=== PATIENT | female | born 1960 | race American Indian/Alaskan Native ===

== ENCOUNTER 2018-02-23 08:16 | Outpatient (CLI) | payer OTHER ==
--- NOTE | 2018-03-04 08:33 | Ultrasound Report ---
BILATERAL DIGITAL DIAGNOSTIC MAMMOGRAM and RIGHT BREAST ULTRASOUND: 02/23/18 08:16:00 CLINICAL: Recalled for bilateral asymmetries. COMPARISON:02/05/18 mammogram FINDINGS: Lateralmedial and spot compression CC views of the left breast were performed and are negative. No persistent asymmetry. An inferior right lower outer circumscribed focal asymmetry with a lobular shape persists on lateralmedial and spot compression MLO and CC views. Ultrasound of the lower outer right breast was performed and demonstrated an oval complex cyst with a lobular shape at 7 o'clock 9 cm from the nipple. It measures 1.4 x 0.7 x 0.8 cm and correlates with the mammographic density. No other significant finding. IMPRESSION: 1. Negative left breast. 2. A probably benign 1.4 cm complex cyst of the right breast at 7 o'clock 9 cm from the nipple.Recommend six month followup right mammogram and targeted right breast ultrasound if needed. BI-RADS CATEGORY: 3 - - Probably Benign ACR BI-RADS MAMMOGRAPHIC CODES: 0 = Needs additional imaging evaluation; 1 = Negative; 2 = Benign; 3 = Probably benign; 4 = Suspicious; 5 = Malignant; 6 = Known biopsy-proven malignancy COMMENT: 1. Dense breast tissue, i.e., adenosis, fibrocystic changes, etc., may obscure an underlying neoplasm. 2. Approximately 10% of cancers are not detected with mammography. 3. A negative mammography report should not delay biopsy if a clinically suspicious mass is present. COMMENT: Patient follow-up letters are generated via our [employer] application.
== END 2018-02-23 08:17 | disposition home or self-care (01) ==
LOC: MERGE 08:16 → MAMMO 08:16
PROVIDERS: ATTEND Urology
DX: R92.8 Other abnormal and inconclusive findings on diagnostic imaging of breast (principal); I10 Essential (primary) hypertension
CPT/HCPCS: 77066

== ENCOUNTER 2019-04-11 07:05 | Outpatient (CLI) | payer OTHER ==
--- NOTE | 2019-04-11 09:23 | Mammography Report ---
DIGITAL SCREENING MAMMOGRAM WITH CAD, 04/11/2019 INDICATION: Routine screening mammography. TECHNIQUE: Digital bilateral 2D mammography was obtained in the craniocaudal and mediolateral obliq ue projections. This examination was interpreted with the benefit of Computer-Aided Detection analysi s. COMPARISON: 02/05/2018 and 08/04/2014 FINDINGS: Breast Density: The breasts are heterogeneously dense, which may obscure small masses. There is no evidence of dominant mass, suspicious calcifications or architectural distortion in eithe r breast. Bilateral mammographic asymmetries are unchanged compared to previous exams. IMPRESSION: No mammographic evidence of malignancy. Follow up recommendation: Routine yearly BI-RADS Category 2: Benign. A "normal" or negative report should not discourage follow up or biopsy of a clinically significant f inding. A written summary of these findings will be mailed to the patient. The patient will be entered into a mammography reporting system which will generate a reminder letter for the patient's next appointmen t at the appropriate interval. The [employer] recommends yearly mammograms starting at age 40 and continuing as l libra as a woman is in good health. Breast MRI is recommended for women with an approximate 20-25% or greater lifetime risk of breast cancer, including women with a strong family history of breast or ova peace cancer or who have been treated for Hodgkin's disease. Signer Name: Arron Medina MD Signed: 04/11/2019 9:19 AM Workstation Name: [id number]
== END 2019-04-11 07:06 | disposition home or self-care (01) ==
LOC: MAMMO 07:05
PROVIDERS: ATTEND Urology
DX: Z12.31 Encounter for screening mammogram for malignant neoplasm of breast (principal)
CPT/HCPCS: 77067

== ENCOUNTER 2020-04-18 07:51 | Outpatient (CLI) | payer OTHER ==
--- NOTE | 2020-04-18 09:19 | Mammography Report ---
DIGITAL SCREENING MAMMOGRAM WITH CAD, 04/18/2020 CLINICAL INFORMATION / INDICATION: Routine screening mammography. SCREENING MAMMOGRAM TECHNIQUE: Digital bilateral 2D mammography was obtained in the craniocaudal and mediolateral obliqu e projections. This examination was interpreted with the benefit of Computer-Aided Detection analysis . COMPARISON: 04/11/2019, 02/23/2018, 02/05/2018, 08/04/2014 FINDINGS: Breast Density: The breasts are heterogeneously dense, which may obscure small masses. No dominant mass, suspicious calcifications, or architectural distortion in either breast. IMPRESSION: No mammographic evidence of malignancy. Follow up recommendation: Routine yearly BI-RADS Category 1: Negative. A "normal" or negative report should not discourage follow up or biopsy of a clinically significant f inding. A written summary of these findings will be mailed to the patient. The patient will be entered into a mammography reporting system which will generate a reminder letter for the patient's next appointmen t at the appropriate interval. The [employer] recommends yearly mammograms starting at age 40 and continuing as l libra as a woman is in good health. Breast MRI is recommended for women with an approximate 20-25% or greater lifetime risk of breast cancer, including women with a strong family history of breast or ova peace cancer or who have been treated for Hodgkin's disease. Signer Name: Bing Phipps MD Signed: 04/18/2020 9:14 AM Workstation Name: [id number]
== END 2020-04-18 07:52 | disposition home or self-care (01) ==
LOC: MAMMO 07:51
PROVIDERS: ATTEND Urology
DX: Z12.31 Encounter for screening mammogram for malignant neoplasm of breast (principal)
CPT/HCPCS: 77067